=== PATIENT | female | born 1940 | race Two or more races ===

== ENCOUNTER 2019-09-25 21:01 | Inpatient (IN) | payer OTHER ==
[~2019-09-25] VITALS: Ht 157.5 cm; Wt 77.1 kg
[2019-09-25 21:08] VITALS: BP 157/75
[2019-09-25] MEDS ORDERED: KETOROLAC 60 MG/2 ML VIAL IM ONE (21:15)
--- NOTE | 2019-09-25 21:30 | NUR ---
pt ambulated to bed 11 with steady gait.
--- NOTE | 2019-09-25 21:39 | NUR ---
79 year old female presents to the emergency department with c/o left foot pain x 2 years. states it is secondary to pt having osteoporosis. says pain is usually tolerable but progressed to worsening pain today. report 9/10 pain. no other s/sx reported by pt. denies headache/blurry vision. denies n/v/d. denies any injury or trauma. pmhx: dm, osteoporosis, HLD. allx to PCN negative covid screen.
[2019-09-25 22:48] LABS: BASOPHILS % (AUTO) 0.5 % (0.0-2.0); HEMATOCRIT 38.1 % (36-48); LYMPHOCYTES # (AUTO) 2.8 K/uL (2.5-16.5); LYMPHOCYTES % (AUTO) 35.9 % (20.5-51.1); MEAN CORPUSCULAR HEMOGLOBIN 31 pg (27-31); MEAN CORPUSCULAR HGB CONC 34 g/dL (33-37); MEAN CORPUSCULAR VOLUME 90.5 fL (80-94); MONOCYTES # (AUTO) 0.9 K/uL (0.8-1.0); NEUTROPHILS # (AUTO) 4.1 K/uL (1.8-7.7); NEUTROPHILS % (AUTO) 52.6 % (42.2-75.2); PLATELET COUNT (AUTO) 162 K/uL (140-450); RED BLOOD CELL COUNT(AUTO) 4.21 MIL/uL (4.20-5.40); RED CELL DISTRIBUTION WIDTH 12.5 % (11.6-13.7); WHITE BLOOD COUNT (AUTO) 7.8 K/uL (4.8-10.8)
[2019-09-25] MEDS ORDERED: MORPHINE SULFATE 2 MG/ML SYR IVP ONE (22:55)
[2019-09-25 23:04] LABS: ANION GAP 13.6 (8-16); CARBON DIOXIDE 26.9 mmol/L (21-32); CHLORIDE 97 mmol/L (98-107); CREATININE 1.5 mg/dL (0.6-1.3); GLUCOSE 108 mg/dL (74-106); POTASSIUM 4.5 mmol/L (3.5-5.1); SODIUM SERUM 133 mmol/L (136-145); UREA NITROGEN, BLOOD 33 mg/dL (7-18)
[2019-09-25] MEDS ORDERED: ONDANSETRON 4 MG/2 ML VIAL IM/IVP PRN (23:35)
[2019-09-25] MEDS ORDERED: POTASSIUM CHLORIDE 10 MEQ TABER PO PRN (23:35)
[2019-09-25] MEDS ORDERED: ACETAMINOPHEN 325 MG TAB PO PRN (23:35)
[2019-09-25] MEDS ORDERED: DOCUSATE SODIUM 100 MG GELCAP PO PRN (23:35)
[2019-09-25] MEDS ORDERED: MORPHINE SULFATE 2 MG/ML SYR IVP PRN (23:40)
--- NOTE | 2019-09-25 23:55 | NUR ---
RECEIVED BEDSIDE REPORT FROM CYN. PT IS AAOX4 MALAY SPEAKING ONLY ABLE TO MAKE NEEDS KNOWN. PT BROUGHT IN BY WHEELCHAIR AMBULATED FROM CHAIR TO BED WITH UNSTEADY GAIT D/T PAIN. C/C L FOOT PAIN PT STATES FOR 2 YEARS. DX: TORN ACHILLES TENDON. BEING ADMITTED FOR SURGERY TOMORROW AM WITH DR ACHARYA. PT AWARE AND VERBALIZED UNDERSTANDING OF NPO STATUS. IV ON R REIS 20G ORDER FOR D5NS AT 75ML/H. VSS. PT WAS SWAB FOR COVID FOR SURGERY WILL PUT IN DROPLET ISOLATION. MRSA SWAB OBTAINED. ORIENTED PT TO ROOM, CALL LIGHT AND STAFF. SKIN IS INTACT. NO SWELLING OR REDNESS NOTED. POC DISCUSSED WITH PT. CALL LIGHT IS WITHIN REACH.
[2019-09-26] VITALS: BP 150/86
--- NOTE | 2019-09-26 | NUR ---
Patient will be admitted to care of . Admited to [facility]. Will go to room 105. Belongings list completed. Report to kathrine nieto .
--- NOTE | 2019-09-26 00:10 | NUR ---
URINE COLLECTED AND SENT TO LAB, IVF NOW INFUSING PER ORDERS. ALL NEEDS MET. WILL CONTINUE TO MONITOR.
[2019-09-26 00:16] LABS: CHOL/HDL RATIO 2.9 (1-4.5); FREE T4 (FREE THYROXINE) 1.06 ng/dL (0.76-1.46); MAGNESIUM 1.6 mg/dL (1.8-2.4); PHOSPHORUS 4.3 mg/dL (2.5-4.9); THYROID STIMULATING HORMONE 0.52 uIU/mL (0.34-3.74)
[2019-09-26] MEDS: DEXT 5% /NACL 0.9% 1,000 ML IV SCH ×3 (00:26→17:11)
--- NOTE | 2019-09-26 01:00 | NUR ---
CONSENT FOR SURGERY OBTAINED PT WITH NO FURTHER QUESTIONS OR CONCERNS. ALL NEEDS MET.
[2019-09-26 01:45] LABS: APPEARANCE,URINE CLEAR (CLEAR); BILIRUBIN,URINE NEGATIVE (NEGATIVE); BLOOD, URINE NEGATIVE (NEGATIVE); COLOR,URINE YELLOW (YELLOW); LEUKOCYTE ESTERASE ,URINE TRACE (NEGATIVE); NITRITE, URINE NEGATIVE (NEGATIVE); UGLUCOSE NEGATIVE (NEGATIVE)
[2019-09-26] MEDS ORDERED: MAGNESIUM OXIDE 400 MG TAB PO SCH (01:45)
[2019-09-26 02:03] LABS: RBC,URINE 0-5 /HPF (0-5); WBC,URINE 0-5 /HPF (0-5)
--- NOTE | 2019-09-26 02:30 | NUR ---
PT IS SLEEPING COMFORTABLY IN BED WITH EYES CLOSED. CHEST RISE AND FALL NOTED. CALL LIGHT IS WITHIN REACH.
--- NOTE | 2019-09-26 04:00 | NUR ---
PT IS SLEEPING COMFORTABLY IN BED. CHEST RISE AND FALL. CALL LIGHT IS WITHIN REACH.
[2019-09-26 04:33] LABS: BASOPHILS % (AUTO) 0.6 % (0.0-2.0); HEMATOCRIT 36.4 % (36-48); HEMOGLOBIN 12.2 g/dL (12.0-16.0); LYMPHOCYTES # (AUTO) 3.5 K/uL (2.5-16.5); LYMPHOCYTES % (AUTO) 47.5 % (20.5-51.1); MEAN CORPUSCULAR HEMOGLOBIN 31 pg (27-31); MEAN CORPUSCULAR HGB CONC 33 g/dL (33-37); MEAN CORPUSCULAR VOLUME 91.8 fL (80-94); MONOCYTES # (AUTO) 0.8 K/uL (0.8-1.0); MONOCYTES % (AUTO) 10.3 % (1.7-9.3); NEUTROPHILS # (AUTO) 3.1 K/uL (1.8-7.7); NEUTROPHILS % (AUTO) 41.6 % (42.2-75.2); PLATELET COUNT (AUTO) 154 K/uL (140-450); RED BLOOD CELL COUNT(AUTO) 3.97 MIL/uL (4.20-5.40); RED CELL DISTRIBUTION WIDTH 12.4 % (11.6-13.7); WHITE BLOOD COUNT (AUTO) 7.4 K/uL (4.8-10.8)
[2019-09-26 04:42] LABS: ANION GAP 7.7 (8-16); CARBON DIOXIDE 30.3 mmol/L (21-32); CHLORIDE 99 mmol/L (98-107); CREATININE 1.6 mg/dL (0.6-1.3); GLUCOSE 148 mg/dL (74-106); SODIUM SERUM 133 mmol/L (136-145); UREA NITROGEN, BLOOD 34 mg/dL (7-18)
[2019-09-26] MEDS ORDERED: DEXTROSE 50% 50 ML SYR IVP PRN ×2 (06:25→11:30)
[2019-09-26] MEDS ORDERED: INSULIN LISPRO SLIDING SCALE 100 UNITS/ML VIAL SUBQ PRN ×2 (06:25→11:30)
--- NOTE | 2019-09-26 07:00 | NUR ---
RECEIVED PATIENT FROM [employer] TEAMMATE NURSE FOR CONTINUITY OF CARE. AAOX4, TAMAZIGHT SPEAKING ONLY, ABLE TO MAKE NEEDS KNOWN. PATIENT ABLE TO AMBULATE, NO COMPLAIN OF PAIN. AWAITING SURGERY FOR L TORN ACHILLES TENDON AT 0730. AWARE AND VERBALIZED UNDERSTANDING OF NPO STATUS. IV ON R REIS 20G ORDER FOR D5NS AT 75ML/H. DROPLET ISOLATION OBSERVED BY ALL STAFF. SAFETY PRECAUTIONS IN PLACE. POC DISCUSSED AND PATIENT VERBALIZES UNDERSTANDING. CALL LIGHT IS WITHIN REACH. WILL CONTINUE TO MONITOR.
--- NOTE | 2019-09-26 07:05 | NUR ---
GAVE BEDSIDE REPORT TO DAY RN. PT ENDORSED IN STABLE CONDITION.
[2019-09-26] MEDS ORDERED: LIDOCAINE 2% 1000 MG/50 ML VIAL INJ ONE (07:28)
[2019-09-26] MEDS ORDERED: BUPIVACAINE-MPF 0.5% 30 ML VIAL INJ ONE (07:29)
[2019-09-26] MEDS ORDERED: BLOOD GLUCOSE MONITORING 1 DEV DEV FS SCH (07:30)
--- NOTE | 2019-09-26 07:30 | NUR ---
PATIENT IS OFF THE UNIT VIA GURNEY FOR OR PROCEDURE. WILL CONTINUE TO MONITOR.
[2019-09-26] MEDS ORDERED: MEPERIDINE 25 MG/ML SYR ONE (07:45)
[2019-09-26] MEDS ORDERED: hydrALAZINE 20 MG/ML VIAL ONE (07:45)
[2019-09-26] MEDS ORDERED: ROCURONIUM 50 MG/5 ML VIAL IV ONE (07:45)
[2019-09-26] MEDS ORDERED: METOCLOPRAMIDE 10 MG/2 ML INJ VIAL ONE (07:45)
[2019-09-26] MEDS ORDERED: SUCCINYLCHOLINE CHLORIDE 200 MG/10 ML VIAL IVP ONE (07:45)
[2019-09-26] MEDS ORDERED: SEVOFLURANE 250 ML BTL INH ONE (07:45)
[2019-09-26] MEDS ORDERED: PROPOFOL 200 MG/20 ML VIAL IV ONE (07:45)
[2019-09-26] MEDS ORDERED: ONDANSETRON 4 MG/2 ML VIAL ONE (07:45)
[2019-09-26] MEDS ORDERED: fentaNYL citrate 0.05 MG/ML VIAL ONE (07:45)
[2019-09-26] MEDS ORDERED: ceFAZolin 1,000 MG VIAL ONE (07:45)
[2019-09-26] MEDS ORDERED: PHENYLEPHRINE 10 MG/ML VIAL ONE (07:45)
[2019-09-26] MEDS ORDERED: GLYCOPYRROLATE 0.2 MG/ML VIAL ONE (07:45)
[2019-09-26 08:00] VITALS: BP 143/81
--- NOTE | 2019-09-26 08:51 | NUR ---
PATIENT HAS BEEN SCREENED AND CATEGORIZED MODERATE NUTRITION RISK. PATIENT WILL BE SEEN WITHIN 3-5 DAYS OF ADMISSION. 09/28/19 09/30/[address]
[2019-09-26] MEDS ORDERED: ACETAMINOPHEN/CODEINE 300/30MG 1 TAB PO PRN (10:35)
--- NOTE | 2019-09-26 10:35 | NUR ---
OIL AND GAS EXPLORATION TECHNICIAN NOTE: SW CONTACTED PATIENT'S EMERGENCY CONTACT, FLORES MONZON [phone]. SW LEFT VM TO COMPLETE ASSESSMENT. SW WILL FOLLOW UP.
--- NOTE | 2019-09-26 11:15 | NUR ---
PATIENT RETURNS FROM OR VIA GURNEY. PROCEDURE IS SUCCESSFUL. PATIENT IS AWAKE AND IN BED. COMPLAINS OF LEFT EYE DRYNESS. WILL REPORT TO MD. V/S TAKEN BP 116/51, HR 67, SAO2 97%, TEMP 97.3F, RR 24 AND NO COMPLAINS OF PAIN. WILL CONTINUE TO MONITOR.
[2019-09-26] MEDS: BLOOD GLUCOSE MONITORING 1 DEV DEV FS SCH ×3 (11:55→19:55)
--- NOTE | 2019-09-26 11:55 | NUR ---
NO INSULIN COVERAGE GIVEN FOR BLOOD GLUCOSE OF 118. NO SIGNS OF DISTRESS NOTED. V/S TAKEN AND IS WNL. WILL CONTINUE TO MONITOR.
[2019-09-26] MEDS ORDERED: HYDROmorphone 1 MG/ML AMP IVP PRN (12:10)
--- NOTE | 2019-09-26 12:13 | NUR ---
DISCHARGE PLANNING: THIS IS A 79 Y/O FEMALE PATIENT FROM HOME, WHO CAME IN DUE TO CHRONIC LEFT FOOT PAIN. PAST MEDICAL HISTORY INCLUDE DM AND HTN. INITIAL DIAGNOSIS OF TORN ACHILLES TENDON. CURRENT LABS INCLUDE WBC 7.4, H/H 12.2/36.4, NA/K 133/4.0, BUN/CREA 34/1.6, MAG 1.6. COVID TEST PENDING. LEFT FOOT X RAY SHOWED POSTERIOR CALCANEAL SPUR. ANKLE X RAY SHOWED INTERVAL RESETION OF THE CALCANEAL TUBEROSITY WITH NO EVIDENCE OF IMMEDIATE COMPLICATION. PODIATRY CONSULT IN PLACE AND SEEN. S/P LEFT ACHILLES REPAIR AND CALCANEAL EXOSTECTOMY. DC PLAN BACK TO HOME ONCE STABLE. Addendum: 09/27/19 at 1150 by Jess Miller CM RECEIVED AN ORDER FOR SNF EVAL FOR PT, AND PATIENT WILL NEED A WALKER. MET WITH THE PATIENT AT THE BEDSIDE TO DISCUSS DC PLANNING AND IS IN AGREEMENT. SHE IS REQUESTING FOR WHEELCHAIR BECAUSE SHE STATED IT IS HARD TO MANEUVER WITH THE WALKER. PT MADE AWARE. PER MELVINA PT, PATIENT WILL BENEFIT WITH THE WHEELCHAIR. DR. WAGNER MADE AWARE. OK TO PLACE ORDER FOR WHEELCHAIR AND WALKER. CONTACTED [facility] AT [phone] [id number], ABLE TO SPEAK TO BAUTISTA FREEMAN REGARDING DC PLAN. HE STATED HE WILL FAX ME OVER THEIR LIST OF CONTRACTED SNF AND FOR DME TO CONTACT [facility] OR [facility]. PROVIDED HIM OF OUR FAX NUMBER. HE ALSO STATED THAT COORDINATOR AMAN WILL BE IN CONTACT WITH ME. WILLFAX OVER ORDER AND CLINICALS. I ALSO INQUIRED FOR THE AUTH. HE STATED HE HAS THE TRACKING NUMBER [id number]. [facility] COORDINATOR INFORMED AND WILL FOLLOW UP. PER [facility] COORDINATOR, HE FOLLOWED UP WITH THIERRY OLIVAREZ AND GOT THE AUTH. Addendum: 09/27/19 at 1512 by Jess Miller TRIED CONTACTED PATIENT WITH INTERPRETERS [employer] [phone] AND [employer] [id number] TO NO AVAIL, PATIENT IS NOT ABLE TO FIXTURE BUILDER HER PHONE. TRIED AGAIN WITH SOFTWARE TECHNICIAN MICKY [phone], ABLE TO SPEAK TO THE PATIENT. AL PLANNING TO SNF DISCUSS AND PATIENT REFUSED SNF. SHE STATED SHE WILL BE GOING HOME TO HER DAUGHTER FLORES MONZON [phone]. CONTACTED THE PROVIDED NUMBER, ABLE TO SPEAK TO FLORES. SHE CONFIRMED THAT PATIENT IS GOING HOME WITH HER AND NOT AGREEABLE TO SNF. I RECOMMENDED HOME HEALTH FOR PT AND SHE IS AGREEABLE. I ASKED HER IF SHE HAS ANY PREFERENCE FOR HOME HEALTH. SHE STATED WHOEVER THE INSURANCE IS CONTRACTED WITH. SHE ALSO REQUESTED TO HAVE HER MOTHER CALL HER, BECAUSE SHE WAS TRYING TO CALL HER AND WAS NOT PICKING UP. INFORMED HER THAT I WILL LET THE NURSE KNOW. PRIMARY RN BRIANNE MADE AWARE. DR. WAGNER MADE AWARE THAT PATIENT AND DAUGHTER REFUSED SNF. HE STATED TO ORDER HOME FOR PT. BAUTISTA FREEMAN OF [facility] MADE AWARE. HE STATED TO SEND IT TO [facility]. PER BAUTISTA FREEMAN HE DOES HAVE [employer] H/H PHONE NUMBER. CONTACTED COORDINATOR AMAN AT [facility] MG X [phone] TO ASKED FOR [employer]'S CONTACT INFO. HE PROVIDED ME WITH [phone]. CONTACTED THE PROVIDED NUMBER, ABLE TO SPEAK TO BLAS. SHE STATED TO GO AHEAD AND SEND REFERRAL TO [phone]. SHE STATED TO CALL INTAKE AT [phone] TO FOLLOW UP REFERRAL. WILL FOLLOW UP. ORDER AND REFERRAL SENT TO [facility], [facility], [facility] AND [facility]. WILL FOLLOW UP Addendum: 09/27/19 at 8075 by Jess Miller CM CONTACTED [facility] AT [phone], ABLE TO SPEAK TO INDU TO CONFIRM IF THEY HAVE RECEIVE THE REFERRAL. PER INDU, NOT YET. SHE PROVIDED ME ANOTHER FAX NUMBER [phone]. ORDER SENT. WILL FOLLOW UP. Addendum: 09/28/19 at 0838 by Jess Miller CM RECEIVED A VOICE MESSAGE FROM DUDLEY VALDERRAMA OF [facility] [phone] STATING THAT THEY ARE ABLE TO ACCEPT THE PATIENT HOWEVER REQUESTING FOR 6-9 VISITS. CALLED HER BACK, NO ANSWER. LEFT MESSAGE. COORDINATOR AMAN OF [facility] [phone] MADE AWARE. HE STATED HE WILL INFORM BAUTISTA FREEMAN IF THEY CAN EXTEND UP TO 9 VISITS. INFORMED HIM WELL THAT I WAS IN CONTACT WITH [facility] FOR THE DME, HE REQUESTED FOR CPT CODES FOR FWW AND WHEELCHAIR. CONTACTED INDU OF [facility], SHE PROVIDED ME WITH CPT CODES WHEELCHAIR K0001 AND FWW [id number]. CODES PROVIDED TO AMAN COORDINATOR OF [facility]. Addendum: 09/28/19 at 1051 by Rachel Bernal CM RECEIVED AUTH FROM [facility]. AUTH FOR DME [id number] AUTH FOR HOME HEALTH [id number]. CALLED [facility] AND PROVIDED INDU THE AUTH NUMBER. SHE STATED WHEEL CHAIR AND WALKER WILL BE DELIVERED TO BED SIDE IN ABOUT HOURS. CONTACTED DUDLEY AT [facility] TO PROVIDE AUTH, SHE STATED THAT SHE RECEIVED AUTH FROM INSURANCE Addendum: 09/28/19 at 1136 by Rachel Bernal CM NOTIFIED ROYA AL THAT HOME HEALTH AND DME HAS BEEN SET UP. PATIENT CAN DISCHARGE ONCE WHEEL CHAIR AND WALKER HAS BEEN DELIVERED. SPOKE TO ALEX TANNER [phone] TO NOTIFY HER THAT HER MOTHER WILL BE DISCHARGING TODAY AND EVERYTHING HAS BEEN SET UP FOR HER. DUDLEY FROM [facility] [phone] WILL CONTACT PATIENT/FAMILY TO NOTIFY THEM WHEN A NURSE WILL BE OUT TO ASSIST PATIENT. Addendum: 09/28/19 at 1520 by Rachel Bernal CM FOLLOWED UP WITH VARUN AT [facility] HE STATED THAT THEY ARE HAVING TROUBLE VERIFYING AUTH FROM . SPOKE TO INDU [phone] TO VERIFY THAT INFORMATION PROVIDED WAS CORRECT. SHE IS GOING TO FOLLOW UP AND CONTACT ME BACK. Addendum: 09/28/19 at 1541 by Rachel Bernal CM VARUN FROM [facility] FOLLOWED UP. HE APOLOGIZED FOR THE INCONVENIENCE. THE ETA FOR EQUIPMENT IS 4:00 PM-8:00PM. NOTIFIED ROYA AL. Addendum: 09/28/19 at 1618 by Rachel Bernal CM FOLLOWED UP WITH INDU AT [facility] SHE WAS ABLE TO PROVIDE ME WITH AN EARLIER ETA OF 4:30-6:30 NOTIFIED ROYA AND PT'S DAUGHTER
--- NOTE | 2019-09-26 14:30 | NUR ---
REPORTED TO DR. WAGNER ABOUT PATIENT'S COMPLAIN OF LEFT EYE DRYNESS. NEW ORDER FOR ARTIFICIAL TEARS. WILL FOLLOW THROUGH.
[2019-09-26] MEDS ORDERED: POLYVINYL ALCOHOL 1.4% OP 15 ML SOL OP PRN (15:15)
[2019-09-26 16:00] VITALS: BP 119/53
--- NOTE | 2019-09-26 16:34 | NUR ---
NO INSULIN COVERAGE GIVEN FOR BLOOD GLUCOSE OF 118. NO SIGNS OF DISTRESS NOTED. V/S TAKEN AND IS WNL. WILL CONTINUE TO MONITOR.
--- NOTE | 2019-09-26 17:12 | NUR ---
AFTERNOON MEDICATIONS GIVEN. NO SIGNS OF DISTRESS NOTED. WILL CONTINUE TO MONITOR.
--- NOTE | 2019-09-26 19:21 | NUR ---
ENDORSED TO BEAN VINER NURSE FOR CONTINUITY OF CARE.
--- NOTE | 2019-09-26 19:22 | NUR ---
RECEIVED BEDSIDE REPORT FROM DAY RN. PT IS OCCITAN SPEAKING ONLY. IS AAOX4. RESPIRATIONS ARE EQUAL AND UNLABORED ON ROOM AIR SAT WELL. S/P SURGERY FOR ACHILLES TENDON REPAIR DRESSING IS C/D/I. IV ON LAC IVF INFUSING PER ORDERS. PT SITTING UP EATING DINNER NO S/S OF DISTRESS. POC DISCUSSED WITH PT. ALL NEEDS MET. CALL LIGHT IS WITHIN REACH.
--- NOTE | 2019-09-26 19:31 | NUR ---
SPOKE WITH PT'S DAUGHTER FLORES GAVE UPDATE. PER DAUGHTER PT REQUIRERS ATIVAN AND PAIN MEDICATION. INFORMED DAUGHTER I WILL MEDICATE MOTHER DEPENDING PAIN LEVEL AND WILL ASSESS IF PT IS ANXIOUS. DAUGHTER VERBALIZED UNDERSTANDING. ALL QUESTIONS AND CONCERNS ADDRESSED.
[2019-09-26] MEDS: HYDROcodone/APAP 7.5/325 MG 1 TAB PO PRN (19:45)
--- NOTE | 2019-09-26 19:45 | NUR ---
PAIN LEVEL 6/10 ADMINISTERED PRN NORCO. PT DOES NOT APPEAR ANXIOUS AND DOES NOT VERBALIZED HAVING ANXIETY. ELEVATED PT'S FOOT ON PILLOW. DRESSING IS C/D/I. CAP REFILL <3 SEC. BG 176 PT JUST HAD DINNER DOES NOT NORMALLY TAKE INSULIN. WILL HOLD HUMALOG TONIGHT AND RECHECK BLOOD SUGAR IN AM. ALL NEEDS MET. CALL LIGHT IS WITHIN REACH.
[2019-09-26] MEDS: NACL 0.9% 1,000 ML IV SCH (20:38)
--- NOTE | 2019-09-26 21:30 | NUR ---
PATIENT IS RESTING COMFORTABLY IN BED. NO S/S OF DISTRESS. CALL LIGHT IS WITHIN REACH. WILL CONTINUE TO MONITOR.
[2019-09-26] MEDS: ZOLPIDEM 5 MG TAB PO PRN (23:30)
--- NOTE | 2019-09-26 23:30 | NUR ---
VSS. ADMINISTERED PRN MORPHINE FOR L FOOT PAIN 09/24. PT TOLERATED WELL. CALL LIGHT IS WITHIN REACH.
[2019-09-27] VITALS: BP 128/60
--- NOTE | 2019-09-27 02:14 | NUR ---
MADE ROUNDS. PT IS SLEEPING COMFORTABLY IN BED WITH EYES CLOSED. CHEST RISE AND FALL NOTED. CALL LIGHT IS WITHIN REACH.
--- NOTE | 2019-09-27 04:15 | NUR ---
MADE ROUNDS. PT IS SLEEPING COMFORTABLY IN BED WITH EYES CLOSED. CHEST RISE AND FALL NOTED. CALL LIGHT IS WITHIN REACH. WILL CONTINUE TO MONITOR.
[2019-09-27] MEDS: HYDROcodone/APAP 7.5/325 MG 1 TAB PO PRN ×4 (04:22→22:11)
--- NOTE | 2019-09-27 04:22 | NUR ---
ADMINISTERED PRN NORCO FOR LEG PAIN 6/10 PT TOLERATED WELL. GAVE VANILLA PUDDING PER REQUEST. ALL SAFETY MEASURES ARE IN PLACE. CALL LIGHT IS WITHIN REACH.
[2019-09-27 05:53] LABS: BASOPHILS % (AUTO) 0.2 % (0.0-2.0); HEMATOCRIT 35.7 % (36-48); LYMPHOCYTES # (AUTO) 1.7 K/uL (2.5-16.5); LYMPHOCYTES % (AUTO) 19.5 % (20.5-51.1); MEAN CORPUSCULAR HEMOGLOBIN 31 pg (27-31); MEAN CORPUSCULAR HGB CONC 34 g/dL (33-37); MEAN CORPUSCULAR VOLUME 92.4 fL (80-94); MONOCYTES % (AUTO) 11.1 % (1.7-9.3); NEUTROPHILS # (AUTO) 6.2 K/uL (1.8-7.7); NEUTROPHILS % (AUTO) 69.2 % (42.2-75.2); PLATELET COUNT (AUTO) 143 K/uL (140-450); RED BLOOD CELL COUNT(AUTO) 3.86 MIL/uL (4.20-5.40); RED CELL DISTRIBUTION WIDTH 12.4 % (11.6-13.7); WHITE BLOOD COUNT (AUTO) 8.9 K/uL (4.8-10.8)
--- NOTE | 2019-09-27 06:00 | NUR ---
BLOOD SUGAR 136 NO COVERAGE NEEDED. NO S/S OF DISTRESS. CALL LIGHT IS WITHIN REACH. WILL CONTINUE TO MONITOR.
[2019-09-27] MEDS: BLOOD GLUCOSE MONITORING 1 DEV DEV FS SCH ×4 (06:32→21:03)
--- NOTE | 2019-09-27 07:23 | NUR ---
GAVE BEDSIDE REPORT TO DAY RN. PT ENDORSED IN STABLE CONDITION.
--- NOTE | 2019-09-27 07:23 | NUR ---
RECEIVED REPORT FROM PM RN. C/O LT FOOT PAIN. DX: TORN ACHILLIES TENDON. COVID 19 NEGATIVE. HX: DM, OSTEOPOROSIS, HYPERLIPEMIA. ALLERGIES TO PENICILLIN. FULL CODE. RT HAND 20G RUNNING NS AT 75. [id number] DIET, SOFT. XRAY 09/25 NO FRACTURE, BONE SPUR. PT EVALUATION, NO WEIGHT BARRING, NEEDS CRUTCHES. SS CONSULT. PLAN FOR D/C FOLLOW UP FOR HOME ANTIBIOTICS.
[2019-09-27 08:00] VITALS: BP 119/54
[2019-09-27 08:08] LABS: T4 (THYROXINE) 6.8 ug/dL (4.5-12.0)
[2019-09-27 08:47] LABS: ANION GAP 15.2 (8-16); CARBON DIOXIDE 22.1 mmol/L (21-32); CHLORIDE 104 mmol/L (98-107); CREATININE 1.2 mg/dL (0.6-1.3); GLUCOSE 143 mg/dL (74-106); POTASSIUM 4.3 mmol/L (3.5-5.1); SODIUM SERUM 137 mmol/L (136-145); UREA NITROGEN, BLOOD 21 mg/dL (7-18)
[2019-09-27] MEDS: NACL 0.9% 1,000 ML IV SCH (09:25)
--- NOTE | 2019-09-27 10:00 | NUR ---
PT COMPLAINED OF PAIN. PT RATED PAIN 5/10. MEDICATION GIVEN. WILL REASSESS AT 1100
--- NOTE | 2019-09-27 11:00 | NUR ---
PT STATES SHE HAS NO PAIN. BLOOD SUGAR 118. NO INSULIN GIVEN. SS CONSULT. PT REQUESTS WHEEL CHAIR. PHYSICIAN CAME AND SAW PT.
--- NOTE | 2019-09-27 14:15 | NUR ---
DC IV IN RIGHT HAND. PT WAS COMPLAINING OF PAIN AND BLEEDING. NEW IV IN LT FOREARM 22G RUNNING NS AT 75
--- NOTE | 2019-09-27 15:40 | NUR ---
PT RESTING IN BED. EYES OPEN. RESPIRATIONS EVEN AND UNLABORED. DENIES PAIN. WILL CONTINUE TO MONITOR
[2019-09-27 16:00] VITALS: BP 113/54
--- NOTE | 2019-09-27 19:20 | NUR ---
TRANSFER OF CARE TO PM RN. PT IS STABLE. NO SIGNS OF DISTRESS.
--- NOTE | 2019-09-27 19:25 | NUR ---
RECEIVED PT FROM DAY SHIFT NURSE, PT THAI SPEAKER AAOX4 ON BED REST S/P M LEFT FOOT REPAIR OF TORN ACHILLIES TENDON ON PILLOW ELEVATION DRESSING DRY AND INTACT,IV ON LEFT FA INFUSING WELL INITIAL ASSESSMENT DONE
--- NOTE | 2019-09-27 22:00 | NUR ---
PT IS ASSISTED TO SINT ON A CHAIR AND ALSO TO USE BSC VOIDING WELL
[2019-09-27] MEDS: ZOLPIDEM 5 MG TAB PO PRN (23:03)
--- NOTE | 2019-09-27 23:13 | NUR ---
PT GETTING SLEEP AFTER PAIN MEDIC GIVEN, LEFT FOOT ON PILLOW ELEVATION
[2019-09-28] VITALS: BP 130/57
--- NOTE | 2019-09-28 04:00 | NUR ---
PT HAS BEEN ASSISTING USING BSC VOIDING WELL AND SPONGE BATH GIVEN LINEN CHANGED IV ON LEFT AC INFUSING WELL LEFT LEG ON PILLOW ELEVATION
[2019-09-28] MEDS: NACL 0.9% 1,000 ML IV SCH ×2 (04:15→12:13)
[2019-09-28 06:16] LABS: BASOPHILS % (AUTO) 0.3 % (0.0-2.0); LYMPHOCYTES % (AUTO) 28.7 % (20.5-51.1); MEAN CORPUSCULAR HEMOGLOBIN 31 pg (27-31); MEAN CORPUSCULAR HGB CONC 33 g/dL (33-37); MEAN CORPUSCULAR VOLUME 92.1 fL (80-94); MONOCYTES # (AUTO) 0.9 K/uL (0.8-1.0); MONOCYTES % (AUTO) 13.1 % (1.7-9.3); NEUTROPHILS # (AUTO) 4.1 K/uL (1.8-7.7); NEUTROPHILS % (AUTO) 57.9 % (42.2-75.2); PLATELET COUNT (AUTO) 131 K/uL (140-450); RED BLOOD CELL COUNT(AUTO) 3.58 MIL/uL (4.20-5.40); RED CELL DISTRIBUTION WIDTH 12.8 % (11.6-13.7); WHITE BLOOD COUNT (AUTO) 7.1 K/uL (4.8-10.8)
[2019-09-28] MEDS: BLOOD GLUCOSE MONITORING 1 DEV DEV FS SCH ×3 (06:25→17:21)
--- NOTE | 2019-09-28 06:55 | NUR ---
PT WILL BE ENDORSED TO DAY SHIFT NURSE FOR CONTINUE OF CARE
[2019-09-28 07:15] LABS: ANION GAP 14.8 (8-16); CARBON DIOXIDE 22.3 mmol/L (21-32); CHLORIDE 101 mmol/L (98-107); GLUCOSE 113 mg/dL (74-106); POTASSIUM 4.1 mmol/L (3.5-5.1); SODIUM SERUM 134 mmol/L (136-145); UREA NITROGEN, BLOOD 13 mg/dL (7-18)
--- NOTE | 2019-09-28 07:20 | NUR ---
RECEIVED BEDSIDE REPORT FROM NIGHTSHIFT NURSE. PT RESTING IN BED. ABLE TO MAKE NEEDS KNOWN. RESPIRATIONS EVEN AND UNLABORED WITH NO SOB OR RESPIRATORY DISTRESS. SKIN WARM AND DRY TO TOUCH. IV SITE IN LFA 22G IS CLEAN, DRY, AND INTACT. SAFETY MEASURES IN PLACE. WILL CONTINUE TO MONITOR
[2019-09-28 08:00] VITALS: BP 148/56
--- NOTE | 2019-09-28 10:15 | NUR ---
PATIENT IS AWARE OF DISCHARGE HOME WITH WHEELCHAIR AND FWW. DAUGHTER TO [employer]IDGE CARPENTER PATIENT AT 2PM. SAFETY MEASURES IN PLACE. WILL CONTINUE TO MONITOR
[2019-09-28] MEDS: HYDROcodone/APAP 7.5/325 MG 1 TAB PO PRN ×2 (10:28→14:29)
--- NOTE | 2019-09-28 10:28 | NUR ---
PATIENT COMPLAINED OF MODERATE PAIN. PRN PAIN MEDICATION ADMINISTERED PRESCRIBED PER MD ORDER. PT TOLERATED WELL. MEDICATION EDUCATION PERFORMED. PT VERBALIZED UNDERSTANDING. SAFETY MEASURES IN PLACE. WILL CONTINUE TO MONITOR
[2019-09-28] MEDS ORDERED: HYDR-5092 PO (10:30)
[2019-09-28] MEDS ORDERED: MIRABULK PO (10:30)
[2019-09-28] MEDS ORDERED: DOCU-474 PO (10:30)
--- NOTE | 2019-09-28 11:30 | NUR ---
PT BLOOD SUGAR 124. NO INSULIN NEEDED AT THIS TIME. SAFETY MEASURES IN PLACE. WILL CONTINUE TO MONITOR
--- NOTE | 2019-09-28 12:10 | NUR ---
ADMINISTERED SCHED MED PRESCRIBED PER MD ORDER. MEDICATION EDUCATION PERFORMED. PT RETURNED DEMONSTRATION. SAFETY MEASURES IN PLACE. WILL CONTINUE TO MONITOR
[2019-09-28 12:27] VITALS: BP 148/56
--- NOTE | 2019-09-28 13:30 | NUR ---
PT RESTING IN BED. ABLE TO MAKE NEEDS KNOWN. RESPIRATIONS EVEN AND UNLABORED WITH NO SOB OR RESPIRATORY DISTRESS. SKIN WARM AND DRY TO TOUCH. SAFETY MEASURES IN PLACE. WILL CONTINUE TO MONITOR
--- NOTE | 2019-09-28 14:15 | NUR ---
WHEELCHAIR AND WALKER WILL NOT BE HERE AT 1400. PER PHARMACY SERVICES DIRECTOR, WHEELCHAIR AND WALKER SHOULD BE DROPPED OFF BETWEEN [phone]. PT AND DAUGHTER AWARE. SAFETY MEASURES IN PLACE. WILL CONTINUE TO MONITOR
[2019-09-28 16:00] VITALS: BP 138/57
--- NOTE | 2019-09-28 16:30 | NUR ---
PT BLOOD SUGAR 122. NO INSULIN NEEDED AT THIS TIME. SAFETY MEASURES IN PLACE. WILL CONTINUE TO MONITOR
--- NOTE | 2019-09-28 17:20 | NUR ---
PT RESTING IN BED. ABLE TO MAKE NEEDS KNOWN. RESPIRATIONS EVEN AND UNLABORED WITH NO SOB OR RESPIRATORY DISTRESS. WILL CONTINUE TO MONITOR
--- NOTE | 2019-09-28 18:45 | NUR ---
WENT OVER DISCHARGE INSTRUCTIONS WITH PATIENT. PT SIGNED APPROPRIATE DOCUMENTS. EDUCATED PT ON WHEELCHAIR AND WALKER SAFETY. PT RETURNED DEMONSTRATION. EDUCATED PT TO VISIT ED FOR ANY SIGNS OF DISTRESS. PT VERBALIZED UNDERSTANDING. REMOVED INTACT IV CANNULA, ID BAND, AND ALLERGY BAND. PT CHANGED INTO HER OWN CLOTHES AND GATHERED HER BELONGINGS. PT STABLE TO GO HOME
--- NOTE | 2019-09-28 19:10 | NUR ---
ENDORSED AT BEDSIDE FOR CONTINUITY OF CARE. PT IS STABLE Addendum: 09/28/19 at 1926 by Nicole Mathews RN WRONG ENTRY
== END 2019-09-28 18:45 | disposition home health service (06) | DRG 500 ==
LOC: MED 21:01 → MTU 22:54
PROVIDERS: ADMIT Emergency Medicine; ATTEND Emergency Medicine
PROC: 0QBM0ZZ Excision of Left Tarsal, Open Approach (ICD-10-PCS; principal; 2019-09-26)
PROC: 0LQP0ZZ Repair Left Lower Leg Tendon, Open Approach (ICD-10-PCS; 2019-09-26)
PROC: 0L8P0ZZ Division of Left Lower Leg Tendon, Open Approach (ICD-10-PCS; 2019-09-26)
DX: M76.62 Achilles tendinitis, left leg (principal); N17.0 Acute kidney failure with tubular necrosis; S86.022A Laceration of left Achilles tendon, initial encounter; E87.1 Hypo-osmolality and hyponatremia; E11.9 Type 2 diabetes mellitus without complications; E83.42 Hypomagnesemia; I10 Essential (primary) hypertension; X58.XXXA Exposure to other specified factors, initial encounter; M89.9 Disorder of bone, unspecified; Z20.828 Contact with and (suspected) exposure to other viral communicable diseases; Z88.0 Allergy status to penicillin; Z90.49 Acquired absence of other specified parts of digestive tract; Y93.89 Activity, other specified; Y92.89 Other specified places as the place of occurrence of the external cause; Y99.8 Other external cause status
CPT/HCPCS: 36415; 71045; 73610; 73620; 80048; 81001; 82150; 82948; 83036; 83690; 83735; 83880; 84100; 84436; 84439; 84443; 84479; 84484; 85025; 85610; 85730; 87081; 93005; 96372; 97110; 97116; 97161-GP; 97530; 99285; J0330; J0360; J0690; J1885; J2001; J2175; J2270; J2370; J2405; J2704; J2765; J3010; J3490; J7030; J7042; J7120; Q0092; U0003-CS

== ENCOUNTER 2022-10-01 13:21 | Emergency (ER) | payer OTHER ==
[~2022-10-01] VITALS: Ht 152.4 cm; Wt 78.1 kg
[~2022-10-01 13:21] MED LIST: DOCU-474 PO; HYDR-5092 PO; MIRABULK PO
[2022-10-01 13:47] VITALS: BP 135/52; PULSE 63; RESP 18; TEMP 98; O2SAT 96
[2022-10-01] MEDS ORDERED: LIDOCAINE 5% 1 EA PATCH TP ONE (14:35)
[2022-10-01] MEDS ORDERED: KETOROLAC 30 MG/ML VIAL IM ONE (14:35)
[2022-10-01] MEDS ORDERED: LID5T TP (17:04)
[2022-10-01] MEDS ORDERED: IBUP-2213 PO (17:04)
== END 2022-10-01 17:15 | disposition home or self-care (01) ==
LOC: MED 13:21
DX: S70.01XA Contusion of right hip, initial encounter (principal); S70.02XA Contusion of left hip, initial encounter; E11.9 Type 2 diabetes mellitus without complications; I10 Essential (primary) hypertension; Z98.890 Other specified postprocedural states; Z88.0 Allergy status to penicillin; Z79.899 Other long term (current) drug therapy; W19.XXXA Unspecified fall, initial encounter; Y93.89 Activity, other specified; Y92.89 Other specified places as the place of occurrence of the external cause; Y99.8 Other external cause status
CPT/HCPCS: 72110; 72170; 96372; 99284; J1885

== ENCOUNTER 2022-10-27 17:48 | Emergency (ER) | payer OTHER ==
[~2022-10-27] VITALS: Ht 149.9 cm; Wt 76.2 kg
[~2022-10-27 17:48] MED LIST changes: +IBUP-2213 PO; +LID5T TP
[2022-10-27 18:12] VITALS: BP 135/45; PULSE 59; RESP 18; TEMP 98.3; O2SAT 100
[2022-10-27 18:57] LABS: FLU A ANTIGEN negative (NEGATIVE); FLU B ANTIGEN NEGATIVE (NEGATIVE)
[2022-10-27 20:35] VITALS: O2SAT 100
[2022-10-27] MEDS ORDERED: NACL 0.9% 1,000 ML IV ONE (20:50)
[2022-10-27] MEDS ORDERED: ACETAMINOPHEN EXTRA STRENGTH 500 MG TAB PO ONE ×2 (20:50→21:15)
[2022-10-27] MEDS ORDERED: DEXTROSE 50% 50 ML SYR IVP ONE (20:50)
[2022-10-27] MEDS ORDERED: KETOROLAC 15 MG/ML VIAL IM ONE ×2 (20:50→21:15)
[2022-10-27] MEDS ORDERED: IBUP-1842 PO (21:14)
[2022-10-27] MEDS ORDERED: NIRM1TAB PO ×2 (21:18→21:22)
== END 2022-10-27 22:15 | disposition home or self-care (01) ==
LOC: MED 17:48
DX: U07.1 COVID-19 (principal); E11.649 Type 2 diabetes mellitus with hypoglycemia without coma; I10 Essential (primary) hypertension; E78.5 Hyperlipidemia, unspecified; Z79.4 Long term (current) use of insulin; Z79.899 Other long term (current) drug therapy
CPT/HCPCS: 87426; 87804; 96372; 99283; J1885

== ENCOUNTER 2023-10-20 13:25 | Inpatient (IN) | payer OTHER ==
[~2023-10-20] VITALS: Ht 157.5 cm; Wt 80.9 kg
[~2023-10-20 13:25] MED LIST changes: +IBUP-1842 PO; +NIRM1TAB PO
[2023-10-20 13:30] VITALS: BP 136/52; PULSE 80; RESP 16; TEMP 100.3; O2SAT 92
[2023-10-20 14:13] LABS: BASOPHILS % (AUTO) 0.2 % (0.0-2.0); HEMATOCRIT 35.9 % (36-48); HEMOGLOBIN 11.8 g/dL (12.0-16.0); LYMPHOCYTES # (AUTO) 1.9 K/uL (2.5-16.5); LYMPHOCYTES % (AUTO) 9.1 % (20.5-51.1); MEAN CORPUSCULAR HEMOGLOBIN 29 pg (27-31); MEAN CORPUSCULAR HGB CONC 33 g/dL (33-37); MEAN CORPUSCULAR VOLUME 89.2 fL (80-94); MONOCYTES # (AUTO) 2.3 K/uL (0.8-1.0); MONOCYTES % (AUTO) 11.2 % (1.7-9.3); NEUTROPHILS # (AUTO) 16.3 K/uL (1.8-7.7); NEUTROPHILS % (AUTO) 79.5 % (42.2-75.2); PLATELET COUNT (AUTO) 179 K/uL (140-450); RED BLOOD CELL COUNT(AUTO) 4.03 MIL/uL (4.20-5.40); RED CELL DISTRIBUTION WIDTH 14.2 % (11.6-13.7); WHITE BLOOD COUNT (AUTO) 20.5 K/uL (4.8-10.8)
[2023-10-20 14:24] LABS: APPEARANCE,URINE CLEAR (CLEAR); BILIRUBIN,URINE NEGATIVE (NEGATIVE); BLOOD, URINE 1+ (NEGATIVE); COLOR,URINE YELLOW (YELLOW); LEUKOCYTE ESTERASE ,URINE 1+ (NEGATIVE); NITRITE, URINE POSITIVE (NEGATIVE); PROTEIN,URINE 1+ (NEGATIVE); UGLUCOSE NEGATIVE (NEGATIVE)
[2023-10-20 14:35] LABS: BACTERIA,URINE >30 (MANY) /HPF (None Seen); SQUAMOUS EPITHELIAL CELL,UR 0-3 (FEW) /LPF (0-3 (FEW))
[2023-10-20 14:38] LABS: ALANINE AMINOTRANSFERASE 216 U/L (12-78); ALBUMIN 2.9 g/dL (3.4-5.0); ALKALINE PHOSPHATASE 180 U/L (50-136); ANION GAP 8.5 (8-16); ASPARTATE AMINOTRANSFERASE 146 U/L (15-37); CALCIUM 9.1 mg/dL (8.5-10.1); CARBON DIOXIDE 26.9 mmol/L (21-32); CHLORIDE 99 mmol/L (98-107); CREATININE 1.7 mg/dL (0.6-1.3); GLUCOSE 185 mg/dL (74-106); POTASSIUM 4.4 mmol/L (3.5-5.1); SODIUM SERUM 130 mmol/L (136-145); TOTAL BILIRUBIN 1.3 mg/dL (0.0-1.0); TOTAL PROTEIN, SERUM 7.1 g/dL (6.4-8.2); UREA NITROGEN, BLOOD 39 mg/dL (7-18)
[2023-10-20 14:39] LABS: ACETAMINOPHEN < 0.5 ug/ml (10-30); SALICYLATE < 2.8 mg/dL (2.8-20.0)
[2023-10-20 14:44] LABS: LACTIC ACID 1.3 mmol/L (0.4-2.0)
[2023-10-20] MEDS ORDERED: cefTRIAXone 1,000 MG VIAL ONE (15:22)
[2023-10-20] MEDS: NACL 0.9% 2,000 ML IV ONE (15:30)
[2023-10-20] MEDS ORDERED: ALBUTEROL 0.083% 2.5 MG/3 ML NEBU INH PRN (16:40)
[2023-10-20] MEDS ORDERED: ONDANSETRON 4 MG/2 ML VIAL IVP PRN (16:40)
[2023-10-20] MEDS ORDERED: DEXTROSE 50% 50 ML SYR IVP PRN (16:45)
[2023-10-20] MEDS: NACL 0.9% 1,000 ML IV SCH (19:05)
[2023-10-20] MEDS ORDERED: LYR50 PO (19:46)
[2023-10-20] MEDS ORDERED: ALPR0.252 PO (19:48)
[2023-10-20] MEDS ORDERED: MAGN400T7 PO (19:48)
[2023-10-20] MEDS ORDERED: ATOR10TA51 PO (19:50)
[2023-10-20] MEDS ORDERED: PROP20TA75 PO (19:50)
[2023-10-20 19:56] VITALS: PULSE 77
[2023-10-20 20:00] VITALS: O2SAT 99
[2023-10-20 20:20] VITALS: BP 118/58; PULSE 72; RESP 18; TEMP 100.3; O2SAT 99
[2023-10-20] MEDS: ACETAMINOPHEN 325 MG TAB PO PRN (20:25)
[2023-10-20 20:52] VITALS: PULSE 72; RESP 18; O2SAT 99
[2023-10-20] MEDS: BLOOD GLUCOSE MONITORING 1 DEV DEV FS SCH (21:36)
[2023-10-20] MEDS: INSULIN LISPRO SLIDING SCALE 100 UNITS/ML VIAL SUBQ PRN (21:38)
[2023-10-21] VITALS (8 sets, daily range): BP systolic 100–155; BP diastolic 42–59; PULSE 54–90; RESP 18; TEMP 97–99.9; O2SAT 95–99
[2023-10-21 05:43] LABS: BASOPHILS % (AUTO) 0.2 % (0.0-2.0); EOSINOPHILS % (AUTO) 0.3 % (0.0-4.0); HEMATOCRIT 31.7 % (36-48); HEMOGLOBIN 10.6 g/dL (12.0-16.0); LYMPHOCYTES # (AUTO) 1.9 K/uL (2.5-16.5); LYMPHOCYTES % (AUTO) 11.2 % (20.5-51.1); MEAN CORPUSCULAR HEMOGLOBIN 30 pg (27-31); MEAN CORPUSCULAR HGB CONC 34 g/dL (33-37); MEAN CORPUSCULAR VOLUME 89.8 fL (80-94); MONOCYTES # (AUTO) 1.8 K/uL (0.8-1.0); MONOCYTES % (AUTO) 10.7 % (1.7-9.3); NEUTROPHILS % (AUTO) 77.6 % (42.2-75.2); PLATELET COUNT (AUTO) 163 K/uL (140-450); RED BLOOD CELL COUNT(AUTO) 3.53 MIL/uL (4.20-5.40); RED CELL DISTRIBUTION WIDTH 14.6 % (11.6-13.7); WHITE BLOOD COUNT (AUTO) 16.7 K/uL (4.8-10.8)
[2023-10-21 06:14] LABS: ANION GAP 12.7 (8-16); CALCIUM 8.2 mg/dL (8.5-10.1); CARBON DIOXIDE 21.5 mmol/L (21-32); CHLORIDE 105 mmol/L (98-107); CREATININE 1.5 mg/dL (0.6-1.3); GLUCOSE 149 mg/dL (74-106); POTASSIUM 4.2 mmol/L (3.5-5.1); SODIUM SERUM 135 mmol/L (136-145); UREA NITROGEN, BLOOD 29 mg/dL (7-18)
[2023-10-21] MEDS: HYDROcodone/APAP 5/325 MG 1 TAB TAB PO PRN (12:13)
[2023-10-22] VITALS (8 sets, daily range): BP systolic 129–165; BP diastolic 53–72; PULSE 60–81; RESP 18; TEMP 97.4–100.4; O2SAT 94–100
[2023-10-22 05:44] LABS: BASOPHILS % (AUTO) 0.1 % (0.0-2.0); HEMOGLOBIN 10.7 g/dL (12.0-16.0); LYMPHOCYTES # (AUTO) 1.6 K/uL (2.5-16.5); LYMPHOCYTES % (AUTO) 11.2 % (20.5-51.1); MEAN CORPUSCULAR HEMOGLOBIN 30 pg (27-31); MEAN CORPUSCULAR HGB CONC 33 g/dL (33-37); MEAN CORPUSCULAR VOLUME 88.8 fL (80-94); MONOCYTES # (AUTO) 1.4 K/uL (0.8-1.0); NEUTROPHILS % (AUTO) 78.7 % (42.2-75.2); PLATELET COUNT (AUTO) 159 K/uL (140-450); RED BLOOD CELL COUNT(AUTO) 3.61 MIL/uL (4.20-5.40); RED CELL DISTRIBUTION WIDTH 13.8 % (11.6-13.7); WHITE BLOOD COUNT (AUTO) 13.9 K/uL (4.8-10.8)
[2023-10-22 05:48] LABS: ANION GAP 13.7 (8-16); CALCIUM 8.4 mg/dL (8.5-10.1); CARBON DIOXIDE 19.2 mmol/L (21-32); CHLORIDE 103 mmol/L (98-107); CREATININE 1.4 mg/dL (0.6-1.3); GLUCOSE 160 mg/dL (74-106); POTASSIUM 3.9 mmol/L (3.5-5.1); SODIUM SERUM 132 mmol/L (136-145); UREA NITROGEN, BLOOD 23 mg/dL (7-18)
[2023-10-22 15:04] LABS: ALBUMIN 2.4 g/dL (3.4-5.0); BILIRUBIN,DIRECT 0.2 mg/dL (0.0-0.3); TOTAL BILIRUBIN 0.6 mg/dL (0.0-1.0); TOTAL PROTEIN, SERUM 6.3 g/dL (6.4-8.2)
[2023-10-22] MEDS: SIMETHICONE 80 MG TAB.CHEW PO PRN (16:05)
[2023-10-22] MEDS: MEROPENEM 1,000 MG in NACL 0.9% 50 ML IV SCH (16:59)
[2023-10-23 04:00] VITALS: BP 152/61; PULSE 57; RESP 18; TEMP 97.4; O2SAT 96
[2023-10-23 07:26] LABS: ANION GAP 14.3 (8-16); CALCIUM 8.5 mg/dL (8.5-10.1); CARBON DIOXIDE 21.6 mmol/L (21-32); CHLORIDE 102 mmol/L (98-107); CREATININE 1.1 mg/dL (0.6-1.3); GLUCOSE 108 mg/dL (74-106); POTASSIUM 3.9 mmol/L (3.5-5.1); SODIUM SERUM 134 mmol/L (136-145); UREA NITROGEN, BLOOD 19 mg/dL (7-18)
[2023-10-23 07:32] LABS: HEMOGLOBIN 10.7 g/dL (12.0-16.0)
[2023-10-23 07:35] LABS: BASOPHILS # (AUTO) 0.1 K/uL (0.00-0.22); BASOPHILS % (AUTO) 0.6 % (0.0-2.0); HEMATOCRIT 32.1 % (36-48); MEAN CORPUSCULAR HEMOGLOBIN 30 pg (27-31); MEAN CORPUSCULAR HGB CONC 33 g/dL (33-37); MEAN CORPUSCULAR VOLUME 89.6 fL (80-94); MONOCYTES # (AUTO) 1.3 K/uL (0.8-1.0); MONOCYTES % (AUTO) 11.5 % (1.7-9.3); NEUTROPHILS % (AUTO) 69.9 % (42.2-75.2); PLATELET COUNT (AUTO) 200 K/uL (140-450); RED BLOOD CELL COUNT(AUTO) 3.58 MIL/uL (4.20-5.40); RED CELL DISTRIBUTION WIDTH 14.2 % (11.6-13.7); WHITE BLOOD COUNT (AUTO) 11.4 K/uL (4.8-10.8)
[2023-10-23 08:00] VITALS: BP 142/64; PULSE 62; PULSE 71; RESP 16; RESP 18; TEMP 97.5; O2SAT 94; O2SAT 96
[2023-10-23] MEDS: MEGESTROL 400 MG/10 ML UDC PO SCH (11:29)
[2023-10-23] MEDS: ALUMINUM HYD/MAG/SIMETHICONE 30 ML UDC PO PRN (11:53)
[2023-10-23] MEDS ORDERED: PROPRANOLOL 20 MG TAB PO SCH (12:00)
[2023-10-23] MEDS: PREGABALIN 50 MG CAP PO SCH (13:39)
[2023-10-23 16:00] VITALS: BP 146/73; PULSE 66; RESP 18; TEMP 97.7; O2SAT 95
[2023-10-23 20:00] VITALS: PULSE 96; RESP 18; TEMP 98.2; O2SAT 96
[2023-10-23] MEDS: DOCUSATE SODIUM 100 MG GELCAP PO SCH (22:51)
[2023-10-23] MEDS: ALPRAZolam 0.25 MG TAB PO SCH (22:51)
[2023-10-24 08:00] VITALS: BP 148/72; PULSE 65; RESP 16; TEMP 97.8; O2SAT 95
[2023-10-24] MEDS: PROPRANOLOL 20 MG TAB PO SCH (08:30)
[2023-10-24] MEDS ORDERED: NON-FORMULARY ITEM (Atorvastatin Calcium 1 TAB) PO SCH (09:00)
[2023-10-24 11:33] LABS: ANION GAP 11.8 (8-16); CALCIUM 8.8 mg/dL (8.5-10.1); CARBON DIOXIDE 23.7 mmol/L (21-32); CHLORIDE 102 mmol/L (98-107); CREATININE 1.1 mg/dL (0.6-1.3); GLUCOSE 153 mg/dL (74-106); POTASSIUM 3.5 mmol/L (3.5-5.1); SODIUM SERUM 134 mmol/L (136-145); UREA NITROGEN, BLOOD 16 mg/dL (7-18)
[2023-10-24 11:37] LABS: MAGNESIUM 1.5 mg/dL (1.8-2.4); PHOSPHORUS 2.5 mg/dL (2.5-4.9)
[2023-10-24] MEDS: traMADol 50 MG TAB PO PRN (14:51)
[2023-10-24 16:00] VITALS: BP 116/53; PULSE 64; RESP 18; TEMP 97.5; O2SAT 95
[2023-10-24 20:00] VITALS: PULSE 66; RESP 16; TEMP 97.1; O2SAT 97
[2023-10-24 20:11] VITALS: O2SAT 94
[2023-10-24] MEDS: PANTOPRAZOLE 40 MG INJ VIAL IVP SCH (22:21)
[2023-10-24 22:46] VITALS: O2SAT 97
[2023-10-25] VITALS (10 sets, daily range): BP systolic 116–156; BP diastolic 45–73; PULSE 54–66; RESP 16–18; TEMP 96.9–97.5; O2SAT 94–98
[2023-10-25 09:57] LABS: BASOPHILS % (AUTO) 0.4 % (0.0-2.0); HEMATOCRIT 36.2 % (36-48); HEMOGLOBIN 11.9 g/dL (12.0-16.0); LYMPHOCYTES # (AUTO) 1.5 K/uL (2.5-16.5); MEAN CORPUSCULAR HEMOGLOBIN 30 pg (27-31); MEAN CORPUSCULAR HGB CONC 33 g/dL (33-37); MEAN CORPUSCULAR VOLUME 90.1 fL (80-94); MONOCYTES % (AUTO) 13.5 % (1.7-9.3); NEUTROPHILS # (AUTO) 4.6 K/uL (1.8-7.7); NEUTROPHILS % (AUTO) 65.1 % (42.2-75.2); PLATELET COUNT (AUTO) 244 K/uL (140-450); RED BLOOD CELL COUNT(AUTO) 4.02 MIL/uL (4.20-5.40); RED CELL DISTRIBUTION WIDTH 14.3 % (11.6-13.7); WHITE BLOOD COUNT (AUTO) 7.1 K/uL (4.8-10.8)
[2023-10-25 10:29] LABS: ANION GAP 10.6 (8-16); CALCIUM 9.5 mg/dL (8.5-10.1); CARBON DIOXIDE 26.2 mmol/L (21-32); CHLORIDE 103 mmol/L (98-107); CREATININE 1.2 mg/dL (0.6-1.3); GLUCOSE 122 mg/dL (74-106); POTASSIUM 4.8 mmol/L (3.5-5.1); SODIUM SERUM 135 mmol/L (136-145); UREA NITROGEN, BLOOD 22 mg/dL (7-18)
[2023-10-25] MEDS: DICYCLOMINE 10 MG CAP PO SCH (12:34)
[2023-10-26] VITALS (8 sets, daily range): BP systolic 130–140; BP diastolic 54–60; PULSE 59–60; RESP 16–20; TEMP 97–98; O2SAT 95–98
[2023-10-26 07:20] LABS: BASOPHILS % (AUTO) 0.1 % (0.0-2.0); HEMATOCRIT 35.6 % (36-48); HEMOGLOBIN 11.9 g/dL (12.0-16.0); LYMPHOCYTES # (AUTO) 2.7 K/uL (2.5-16.5); LYMPHOCYTES % (AUTO) 34.5 % (20.5-51.1); MEAN CORPUSCULAR HEMOGLOBIN 30 pg (27-31); MEAN CORPUSCULAR HGB CONC 33 g/dL (33-37); MEAN CORPUSCULAR VOLUME 90.1 fL (80-94); MONOCYTES % (AUTO) 12.6 % (1.7-9.3); NEUTROPHILS # (AUTO) 4.2 K/uL (1.8-7.7); NEUTROPHILS % (AUTO) 52.8 % (42.2-75.2); PLATELET COUNT (AUTO) 282 K/uL (140-450); RED BLOOD CELL COUNT(AUTO) 3.95 MIL/uL (4.20-5.40); RED CELL DISTRIBUTION WIDTH 14.3 % (11.6-13.7); WHITE BLOOD COUNT (AUTO) 7.9 K/uL (4.8-10.8)
[2023-10-26 07:23] LABS: ANION GAP 11.9 (8-16); CALCIUM 9.6 mg/dL (8.5-10.1); CARBON DIOXIDE 26.1 mmol/L (21-32); CHLORIDE 101 mmol/L (98-107); CREATININE 1.2 mg/dL (0.6-1.3); GLUCOSE 103 mg/dL (74-106); SODIUM SERUM 135 mmol/L (136-145); UREA NITROGEN, BLOOD 25 mg/dL (7-18)
[2023-10-26] MEDS ORDERED: PANT40EC PO (10:52)
== END 2023-10-26 17:45 | disposition home or self-care (01) | DRG 871 ==
LOC: MED 13:25 → MTU 16:41
PROVIDERS: ADMIT Student in an Organized Health Care Education/Training Program; ATTEND Student in an Organized Health Care Education/Training Program
DX: A41.9 Sepsis, unspecified organism (principal); G93.41 Metabolic encephalopathy; N39.0 Urinary tract infection, site not specified; N17.9 Acute kidney failure, unspecified; I12.9 Hypertensive chronic kidney disease with stage 1 through stage 4 chronic kidney disease, or unspecified chronic kidney disease; N18.32 Chronic kidney disease, stage 3b; E78.5 Hyperlipidemia, unspecified; E11.22 Type 2 diabetes mellitus with diabetic chronic kidney disease; Z90.49 Acquired absence of other specified parts of digestive tract; Z79.899 Other long term (current) drug therapy; Z88.0 Allergy status to penicillin
CPT/HCPCS: 36415; 70450; 71045; 74018; 76705; 76770; 80048; 80053; 80076; 81001; 82948; 83605; 83735; 84100; 84484; 85025; 87040; 87081; 87086; 87186; 93005; 93970; 96365; 97116; 97163-GP; 99285; G0480; J0696; J1815; J2185; J2470; J7060; Q0092